=== PATIENT | male | born 2005 | race Hispanic/Latino ===

== ENCOUNTER 2025-01-01 20:00 | Emergency (ER) | payer OTHER, SELFPAY ==
[2025-01-01] MEDS ORDERED: Ketorolac Tromethamine 30 MG (1 mL) VIAL ONE (21:52)
== END 2025-01-01 22:57 | disposition home or self-care (01) ==
LOC: CSHERS 20:00
DX: R51.9 Headache, unspecified (principal)
CPT/HCPCS: 70450; 96372; J1885